=== PATIENT | male | born 1955 | race Caucasian/White ===

== ENCOUNTER 2019-12-17 18:28 | Inpatient (IN) | payer OTHER, MEDICAID ==
[~2019-12-17] VITALS: Ht 172.7 cm; Wt 86.6 kg
[2019-12-17] MEDS ORDERED: NACL 0.9% 500 ML IV SCH (18:33)
[2019-12-17 18:34] VITALS: BP 117/78
--- NOTE | 2019-12-17 18:45 | NUR ---
63/M BIBA FROM [facility] FOR FEVER AND COUGH X1 DAY. CAREGIVER REPORTS THAT PT HAS URINARY FREQUENCY. DENIES THAT PT HAS ANY N/V/D, CONSTIPATION. PT AWAKE, GCS 10 ([id number]), SPO2 94% ON RA, RR 20 EVEN AND UNLABORED. LUNG SOUNDS CLEAR BL. S1S2. BS ACTIVE X4, ABD SOFT ROUND LARGE NONTENDER, LAYNE GTUBE NOTED. BL FOOT PITTING EDEMA +1 NOTED, WITH CONTRACTURES. L ARM STRONGER THAN R ARM, AT BASELINE. HX INTELLECTUAL DISABILITY, PARAPLEGIA, SPASTIC LOWER EXTREMITY, BPH, SEIZURE, GLAUCOMA, GERD, GALLSTONES, BL FEET EDEMA
[2019-12-17 19:14] LABS: BASOPHILS % (AUTO) 0.3 % (0.0-2.0); HEMOGLOBIN 14.1 g/dL (12.0-18.0); LYMPHOCYTES # (AUTO) 1.5 K/uL (2.0-11.5); LYMPHOCYTES % (AUTO) 15.4 % (20.5-51.1); MEAN CORPUSCULAR HEMOGLOBIN 32 pg (27-31); MEAN CORPUSCULAR HGB CONC 34 g/dL (33-37); MEAN CORPUSCULAR VOLUME 96.2 fL (80-94); MONOCYTES # (AUTO) 1.4 K/uL (0.8-1.0); MONOCYTES % (AUTO) 14.6 % (1.7-9.3); NEUTROPHILS # (AUTO) 6.9 K/uL (1.8-7.7); NEUTROPHILS % (AUTO) 69.7 % (42.2-75.2); PLATELET COUNT (AUTO) 160 K/uL (140-450); RED BLOOD CELL COUNT(AUTO) 4.36 MIL/uL (4.20-6.10); RED CELL DISTRIBUTION WIDTH 13.7 % (11.6-13.7); WHITE BLOOD COUNT (AUTO) 9.9 K/uL (4.8-10.8)
[2019-12-17 19:32] LABS: PROTHROMBIN TIME 10.2 secs (10.8-13.4)
[2019-12-17 19:38] LABS: ALBUMIN 3.2 g/dL (3.4-5.0); CREATININE 0.6 mg/dL (0.6-1.3); POTASSIUM 3.6 mmol/L (3.5-5.1); TOTAL BILIRUBIN 0.2 mg/dL (0.0-1.0)
[2019-12-17 19:44] LABS: APPEARANCE,URINE CLEAR (CLEAR); BILIRUBIN,URINE NEGATIVE (NEGATIVE); BLOOD, URINE 3+ (NEGATIVE); COLOR,URINE YELLOW (YELLOW); LEUKOCYTE ESTERASE ,URINE NEGATIVE (NEGATIVE); NITRITE, URINE POSITIVE (NEGATIVE); UGLUCOSE NEGATIVE (NEGATIVE)
[2019-12-17] MEDS ORDERED: LEVOFLOXACIN 750 MG/D5W PREMIX 150 ML IV ONE (20:05)
[2019-12-17] MEDS ORDERED: OSELTAMIVIR PHOSPHATE 75 MG CAP PO ONE (20:05)
[2019-12-17 20:08] LABS: ANION GAP 12.1 (8-16); CARBON DIOXIDE 28.5 mmol/L (21-32)
--- NOTE | 2019-12-17 20:10 | NUR ---
CRITICAL LAB RESULT: LACTIC 2.2. REPORTED TO JULIANO LENZ
[2019-12-17] MEDS ORDERED: NACL 0.9% 2,000 ML IV ONE (20:15)
[2019-12-17] MEDS ORDERED: HYDROcodone/APAP 10/325 MG 1 TAB TAB PO PRN (20:25)
[2019-12-17] MEDS ORDERED: ONDANSETRON 4 MG/2 ML VIAL IM/IVP PRN (20:25)
[2019-12-17] MEDS ORDERED: DOCUSATE SODIUM 100 MG GELCAP PO PRN (20:25)
[2019-12-17 20:48] LABS: RBC,URINE 11-20 (MOD) /HPF (0-5); WBC,URINE 0-5 /HPF (0-5)
[2019-12-17] MEDS ORDERED: ALBUTEROL SULFATE/IPRATROPIU 3 ML SOL IH PRN (20:55)
[2019-12-17 20:58] LABS: BARBITURATE, URINE POS. ng/ml (NEG <=200); BENZODIAZEPINE, URINE NEG. ng/mL (NEG <=200); CANNABINOID, URINE NEG. ng/mL (NEG <=50); COCAINE, URINE NEG. ng/mL (NEG <=300); OPIATE, URINE NEG. ng/mL (NEG <=2000); PHENCYCLIDINE SCREEN,URINE NEG. ng/mL (NEG <=25)
[2019-12-17] MEDS ORDERED: FISH100053 GT (20:58)
[2019-12-17] MEDS ORDERED: MULT9LIQ2 GT (20:58)
[2019-12-17] MEDS ORDERED: XALOS BOTH EYES (20:58)
[2019-12-17] MEDS ORDERED: OSC500 PO (20:58)
[2019-12-17] MEDS ORDERED: ASCO500T45 GT (20:58)
[2019-12-17] MEDS ORDERED: MEDI30SO GT (20:58)
[2019-12-17] MEDS ORDERED: MIRABULK GT (20:58)
[2019-12-17] MEDS ORDERED: PHEN100C3 PO (20:58)
[2019-12-17] MEDS ORDERED: LACT1CAP63 PO (20:58)
[2019-12-17] MEDS ORDERED: BACL5TAB GT ×2 (20:58→21:41)
[2019-12-17] MEDS ORDERED: DEXT15DR9 BOTH EYES (20:58)
[2019-12-17] MEDS ORDERED: WHEA1POW16 GT (20:58)
[2019-12-17] MEDS ORDERED: TAMS0.4C96 GT (20:58)
[2019-12-17] MEDS ORDERED: KEP500L GT (20:58)
[2019-12-17] MEDS ORDERED: PHEN-1438 GT ×2 (20:58)
[2019-12-17] MEDS ORDERED: VIT D GT (20:58)
[2019-12-17] MEDS ORDERED: PHEN20EL30 GT (20:58)
[2019-12-17] MEDS ORDERED: CARB15DR5 BOTH EARS (20:58)
[2019-12-17] MEDS ORDERED: HYPROMELLOSE BOTH EYES SCH (21:00)
[2019-12-17] MEDS ORDERED: OSELTAMIVIR PHOSPHATE 75 MG CAP PO SCH (21:00)
[2019-12-17] MEDS ORDERED: [UNRECOGNIZED DRUG - OTHER] BOTH EYES SCH (21:00)
[2019-12-17] MEDS ORDERED: GLYCERIN BOTH EYES SCH (21:00)
[2019-12-17] MEDS ORDERED: BACLOFEN 5 MG GT SCH (21:00)
[2019-12-17] MEDS ORDERED: DEXTRAN BOTH EYES SCH (21:00)
[2019-12-17 21:04] VITALS: BP 151/89
--- NOTE | 2019-12-17 21:04 | NUR ---
PT ARRIVED AT UNIT VIA GURNEY, RECEIVED BEDSIDE REPORT FROM COLLECTION TEAM LEAD NELDA AND RAHUL, PT STABLE, NO DISTRESS NOTED, IV TO L AC 20G PATENT INTACT, INFUSING LEVAQUIN AT THIS MOMENT, PT ON 2LPM O2 VIA NC, NO SOB NOTED, CAREGIVER AT BEDSIDE, G TUBE IN PLACE, PT IS APHASIC BASELINE, UNABLE TO LET NEEDS KNOWN, FLACC 0, BLE CONTRACTED, UNABLE TO AMBULATE. INITIAL ASSESSMENT DONE, ALL SAFETY PRECAUTION MET, CALL LIGHT WITHIN REACH, CAREGIVER AT BEDSIDE, MRSA SWAB TAKEN, WILL CONTINUE TO MONITOR.
[2019-12-17 21:14] LABS: AMYLASE 28 U/L (25-115); LACTATE DEHYDROGENASE 258 U/L (85-227); LIPASE 108 U/L (73-393); MAGNESIUM 1.9 mg/dL (1.8-2.4); PHOSPHORUS 2.9 mg/dL (2.5-4.9); THYROID STIMULATING HORMONE 1.02 uIU/mL (0.34-3.74)
--- NOTE | 2019-12-17 21:14 | NUR ---
Patient will be admitted to care of [facility]. Admited to MED SURG. Will go to room 115. Belongings list completed. Report to CRISTINA VÁZQUEZ.
[2019-12-17] MEDS: NACL 0.9% 1,000 ML IV SCH (22:47)
[2019-12-17] MEDS ORDERED: CRUSHER, PILL MC ONE (22:53)
[2019-12-17] MEDS ORDERED: PHENYTOIN 100 MG CAPER PO SCH (23:00)
[2019-12-17] MEDS ORDERED: levETIRAcetam 100 MG/ML ORASYR GT SCH (23:00)
[2019-12-17] MEDS ORDERED: TAMSULOSIN 0.4 MG CAP GT SCH (23:00)
[2019-12-17] MEDS ORDERED: CLINDAMYCIN 600 MG/4 ML VIAL ONE (23:02)
[2019-12-17] MEDS: CLINDAMYCIN 600 MG in DEXTROSE 5% 50 ML IV SCH (23:07)
[2019-12-17] MEDS: ACETAMINOPHEN 325 MG TAB PO PRN (23:22)
--- NOTE | 2019-12-17 23:22 | NUR ---
CHECKED PT V/S PT HAS TEMP 102.7, TYLENOL GIVEN PER DR ORDER ADMINISTERED, PT TOLERATED WELL, NO DISTRESS NOTED, WILL CONTINUE TO MONITOR.
[2019-12-18] VITALS: BP 149/95
--- NOTE | 2019-12-18 00:30 | NUR ---
RECHECKED PT TEMPERATURE 100.2, COOLING MEASURES ADMINISTERED, PT TOLERATED WELL, NO DISTRESS NOTED, CALL LIGHT WITHIN REACH, WILL CONTINUE TO MONITOR.
[2019-12-18] MEDS: LORazepam 1 MG TAB GT PRN (01:15)
--- NOTE | 2019-12-18 01:15 | NUR ---
PT SCREAMING, AND TRYING TO PULL IV, ORDERED MITTEN AND ATIVAN, ATIVAN ADMINISTERED, PT TOLERATED WELL, NO DISTRESS NOTED, E MERCHANT AT BEDSIDE, WILL CONTINUE TO MONITOR.
[2019-12-18] MEDS: LORazepam 2 MG/ML VIAL IVP PRN (02:17)
--- NOTE | 2019-12-18 02:17 | NUR ---
PT HAD A SEIZURE REPORTED BY CAREGIVER, SEIZURE LASTED 45SECONDS, ATIVAN PER ORDER ADMINISTERED, PT TOLERATED WELL, NOTIFIED DR. OLIVAS, STATED UNDERSTANDING, TO PUT PT ON TELE MONITORING. PT SLEEPING, PHYSICIAN OFFICE NURSE AT BEDSIDE WILL CONTINUE TO MONITOR.
[2019-12-18 04:00] VITALS: BP 123/67
--- NOTE | 2019-12-18 04:11 | NUR ---
PT SLEEPING, NO DISTRESS NOTED, V/S TAKEN, CALL LIGHT WITHIN REACH, WILL CONTINUE TO MONITOR.
[2019-12-18] MEDS ORDERED: CLINDAMYCIN 600 MG/4 ML VIAL ONE (06:05)
[2019-12-18] MEDS: CLINDAMYCIN 600 MG in DEXTROSE 5% 50 ML IV SCH ×3 (06:17→18:10)
--- NOTE | 2019-12-18 07:21 | NUR ---
ENDORSED PT TO DAY SHIFT NURSE ISRAEL RN, PT STABLE, NO DISTRESS NOTED, CAREGIVER AT BEDSIDE.
--- NOTE | 2019-12-18 07:23 | NUR ---
RECEIVED BEDSIDE REPORT FROM METERMAN NURSE FOR CONTINUITY OF CARE. PT IS ASLEEP ON BED AND SNORING. RESPIRATION EVEN AND UNLABORED ON 2LPM VIA NC. FLACC 0. NO SIGNS OF DISTRESS NOTED. SCHOOL BOAT DRIVER BY BEDSIDE. IV ON LAC 20G, CLEAN AND INTACT, SUPPORTED BY ARM BAND, INFUSING PER MD ORDER. BILATERAL HEELS REDNESS NOTED, PROTECTED WITH HEEL PROTECTORS, G-TUBE IN PLACE, OTHERWISE, SKIN CLEAN AND DRY. MITTENS IN PLACE, NO SIGNS OF INJURY AND REDNESS. PT IS INCONTINENT AND BEDREST. TELE MONITOR ATTACHED. SAFETY MEASURES IN PLACE. SEIZURE AND ASPIRATION PRECAUTION IN PLACE. BED IN LOW POSITION AND CALL LIGHT WITHIN REACH. FALL RISK PROTOCOL IN PLACE AND BED ALARM ACTIVATED.
[2019-12-18 07:37] LABS: CREATININE 0.6 mg/dL (0.6-1.3); POTASSIUM 3.6 mmol/L (3.5-5.1)
[2019-12-18 07:38] LABS: ANION GAP 11.1 (8-16); BASOPHILS % (AUTO) 0.3 % (0.0-2.0); CARBON DIOXIDE 28.5 mmol/L (21-32); EOSINOPHILS % (AUTO) 0.3 % (0.0-4.0); HEMATOCRIT 39.5 % (36-52); HEMOGLOBIN 13.5 g/dL (12.0-18.0); LYMPHOCYTES # (AUTO) 2.6 K/uL (2.0-11.5); LYMPHOCYTES % (AUTO) 31.8 % (20.5-51.1); MEAN CORPUSCULAR HEMOGLOBIN 33 pg (27-31); MEAN CORPUSCULAR HGB CONC 34 g/dL (33-37); MEAN CORPUSCULAR VOLUME 96.3 fL (80-94); MONOCYTES # (AUTO) 1.6 K/uL (0.8-1.0); MONOCYTES % (AUTO) 19.4 % (1.7-9.3); NEUTROPHILS # (AUTO) 3.9 K/uL (1.8-7.7); NEUTROPHILS % (AUTO) 48.2 % (42.2-75.2); PLATELET COUNT (AUTO) 139 K/uL (140-450); RED CELL DISTRIBUTION WIDTH 13.5 % (11.6-13.7); WHITE BLOOD COUNT (AUTO) 8.1 K/uL (4.8-10.8)
[2019-12-18 07:39] LABS: MAGNESIUM 1.7 mg/dL (1.8-2.4); PHOSPHORUS 3.3 mg/dL (2.5-4.9)
[2019-12-18 07:48] LABS: CHOL/HDL RATIO 2.5 (1-4.5)
[2019-12-18 08:00] VITALS: BP 130/77
[2019-12-18] MEDS: ALBUTEROL SULFATE/IPRATROPIU 3 ML SOL IH SCH ×3 (08:12→19:45)
--- NOTE | 2019-12-18 08:58 | NUR ---
PATIENT HAS BEEN SCREENED AND CATEGORIZED HIGH NUTRITION RISK. PATIENT WILL BE SEEN WITHIN 1-2 DAYS OF ADMISSION. 12/18/19-12/19/[address]
[2019-12-18] MEDS ORDERED: POLYVINYL ALCOHOL 1.4% OP 15 ML SOL BOTH EYES SCH (09:00)
[2019-12-18] MEDS: LEVOFLOXACIN 750 MG/D5W PREMIX 150 ML IV SCH (09:30)
[2019-12-18] MEDS: NACL 0.9% 1,000 ML IV SCH ×2 (09:31→17:26)
[2019-12-18] MEDS: levETIRAcetam 100 MG/ML ORASYR GT SCH ×2 (09:31→21:26)
[2019-12-18] MEDS: OSELTAMIVIR PHOSPHATE 75 MG CAP PO SCH ×2 (09:32→21:21)
[2019-12-18] MEDS: LACTOBACILLUS RHAMNOSUS GG 1 EACH CAP PO SCH (09:32)
[2019-12-18] MEDS: POLYETHYLENE GLYCOL 17 GM/PKT GT SCH (09:32)
[2019-12-18] MEDS: PHENobarbital 30 MG TAB GT SCH (09:33)
[2019-12-18] MEDS: [UNRECOGNIZED DRUG - OTHER] OP SCH ×2 (09:33→22:53)
[2019-12-18] MEDS: DEXTRAN 70 OP SCH ×2 (09:33→22:53)
[2019-12-18] MEDS: PHENYTOIN 100 MG CAPER PO SCH ×2 (09:34→13:03)
[2019-12-18] MEDS: PANTOPRAZOLE 40 MG TABEC PO SCH (09:34)
[2019-12-18] MEDS: BACLOFEN 10 MG TAB GT SCH ×2 (09:34→21:24)
--- NOTE | 2019-12-18 09:38 | NUR ---
CASH TELLER IS CHANGING AND CLEANING PT WITH FOUNTAIN SERVER. ADMINISTERED SCHEDULED MEDS PER MD ORDER VIA G-TUBE, MEDS EDUCATION PROVIDED TO PATIENT AND FOUNTAIN SERVER AT BEDSIDE. PT TOLERATED G-TUBE MEDS WELL. RESPIRATION EVEN AND UNLABORED ON RA. FLACC 0. NO SIGNS OF DISTRESS NOTED. TELE MONITOR ATTACHED. ASPIRATION AND SEIZURE PRECAUTION IN PLACE. BED IN LOW POSITION AND CALL LIGHT WITHIN REACH. BED ALARM ACTIVATED.
--- NOTE | 2019-12-18 11:16 | NUR ---
PT IS RESTING ON BED AND EYES OPEN TO TOUCH. RESPIRATION EVEN AND UNLABORED ON RA. FLACC 0. NO SIGNS OF DISTRESS NOTED. TELE MONITOR ATTACHED. MUSIC VIDEO DIRECTOR MICHAEL BY BEDSIDE. SAFETY MEASURES IN PLACE. BED ALARM ACTIVATED.
[2019-12-18 12:00] VITALS: BP 134/57
--- NOTE | 2019-12-18 12:20 | NUR ---
ADMINISTERED CLINDAMYCIN VIA IVPB PER MD ORDER, MED ED PROVIDED TO PT AND CONCRETE SCULPTOR MICHAEL BY BEDSIDE. MICHAEL IS ASSISTING PT TO EAT LUNCH AT THIS TIME. NO SIGNS OF DISTRESS NOTED. TELE MONITOR ATTACHED. SAFETY MEASURES IN PLACE.
[2019-12-18] MEDS ORDERED: MAG SULF 2000 MG/WATER PREMIX 50 ML IV SCH (13:00)
--- NOTE | 2019-12-18 13:06 | NUR ---
CLEANSED G-TUBE SITE WITH NS AND PAD DRY. CHANGED DRESSING ON G-TUBE SITE, PT TOLERATED WELL. WRAPPED AROUND WITH ABD BAND TO PREVENT PT FROM PULLING OUT G-TUBE. ADMINISTERED MED PHENYTOIN VIA G-TUBE, PT TOLERATED WELL. ADMINISTERED MAG SULFATE FOR LOW AM MAG 1.7 VIA IV, MEDS EDUCATION PROVIDED TO PT AND BACK SHOE CUTTER MICHAEL AT BEDSIDE. PT IS RESTING ON BED. FLACC 0. RESPIRATION EVEN AND UNLABORED ON RA. NO SIGNS OF DISTRESS NOTED. TELE MONITOR ATTACHED. SAFETY MEASURES IN PLACE. BED IN LOW POSITION AND CALL LIGHT WITHIN REACH.
--- NOTE | 2019-12-18 13:52 | NUR ---
12/18/19 RD INITIAL ASSESSMENT COMPLETED PLEASE REFER TO NUTRITION ASSESSMENT UNDER CARE ACTIVITY FOR ESTIMATED NUTRITIONAL NEEDS. 1. CONTINUE MECHANICAL SOFT DIET W/NECTAR THICK LIQUIDS TOLERATED 2. PROVIDE FEEDING ASSISTANCE TO PATIENT WITH MEALS 3. RD TO FOLLOW-UP 3-5 DAYS, MODERATE RISK PATTI CABRERA RD
--- NOTE | 2019-12-18 15:22 | NUR ---
PT AWAKE, MOVING HIS HANDS AND RESTING ON BED. RESPIRATION EVEN AND UNLABORED ON RA. FLACC 0. PARTS CLERK PLANT MAINTENANCE ETTA QUILES AT BEDSIDE. NO SIGNS OF DISTRESS NOTED. TELE MONITOR ATTACHED. SAFETY MEASURES IN PLACE.
--- NOTE | 2019-12-18 15:29 | NUR ---
DC PLANN[age] YR OLD MALE PT WAS ADMITTED FROM [facility] WITH A DX OF UTI, ALOC, INFLUENZA. PT HAS A HX OF INTELLECTUAL DISABILITY SEIZURE DISORDER PARAPLEGIA BPH AND GERD. PT BASE LINE IS NON-VERBAL. STARTED IVF, TAMIFLU , LEVAQUIN AND CLEOCIN IV .BLOOD URINE AND SPUTUM CULTURE PENDING, REPEAT CXR . CONSULTED WITH ID DR MARAVILLA . DC PLAN TO GO BACK TO THE [facility] WHEN STABLE. Addendum: 12/21/19 at 1051 by Barbara Boss CM DC PLANNING: SPOKE WITH MILAGROS VÁZQUEZ FLOATER OPERATOR AT [facility] ,STATED THEY HAVE RN IN THE UNIT CAN ADMINISTER THE IV THE ONLY THING THEY NEED THE IV MEDICATION AND IV PUMP , IF WE SET UP THAT THEY CAN ADMINISTER THE MEDS. CALLED [facility] [phone] SPOKE WITH MANUAL DIRECTOR FAXED THE REQUEST TO [phone] WILL REVIEW THE ORDER AND WILL CALL BACK TO FOLLOW. Addendum: 12/21/19 at 1431 by Barbara Boss CM DC PLANNING RECEIVED A CALL FROM MILAGROS VÁZQUEZ FROM [facility] REQUESTING IF CLINDAMYCIN CAN BE CHANGED TO PO. CHECKED WITH DR MIKE AND YASMINE TO CHANGE CLINDAMYCIN TO PO . CALLED CHERELLE AT [facility] AND FAXED THE NEW ORDER. PAKO TO FOLLOW Addendum: 12/21/19 at 1646 by Tracie Montalvo CM BLS transportation arranged with [facility] , pick-up time is 1800. Medical necessity form faxed to bill pt's insurance. TANA Zamora/PAKO Ext [phone] Addendum: 12/21/19 at 1651 by Barbara Boss CM DC PLANNING PER MILAGROS LEWIS CLINDAMYCIN PO ORDERED TO [facility] AT [phone]
[2019-12-18 16:00] VITALS: BP 121/47
[2019-12-18] MEDS: PHENYTOIN 100 MG/4 ML UDC GT SCH (17:26)
--- NOTE | 2019-12-18 17:27 | NUR ---
ADMINISTERED MED PER MD ORDER ORDER VIA G-TUBE, MED EDUCATION PROVIDED TO PT AND STEP FINISHER ETTA ETTA AT BEDSIDE. PT AWAKE AND PLAYING WITH THE MITTENS. RESPIRATION EVEN AND UNLABORED ON RA. FLACC 0. NO SIGNS OF DISTRESS NOTED. TELE MONITOR ATTACHED. SAFETY MEASURES IN PLACE. BED IN LOW POSITION AND CALL LIGHT WITHIN REACH.
--- NOTE | 2019-12-18 17:47 | NUR ---
WITH ASSIST FROM LEARNING AND DEVELOPMENT ASSISTANT ETTA, AALIYAH IS CLEANING AND REPOSITION PT. PT TOLERATED WELL. NO SIGNS OF DISTRESS NOTED. TELE MONITOR ATTACHED. SAFETY MEASURES IN PLACE. BED IN LOW POSITION AND CALL LIGHT WITHIN REACH. DEMONSTRATED TO LEATHER PATCHER ETTA ON HOW TO USE THE TELEPHONE TO CALL RN EXTENSION AND FEED AND FARM MANAGEMENT ADVISER EXTENSION, ETTA WAS ABLE TO RETURN DEMONSTRATION.
--- NOTE | 2019-12-18 18:10 | NUR ---
ADMINISTERED CLINDAMYCIN VIA IVPB PER MD ORDER, MED ED PROVIDED TO PT AND INVESTIGATIVE AGENT ETTA BY BEDSIDE. ETTA IS ASSISTING PT TO EAT DINNER AT THIS TIME. NO SIGNS OF DISTRESS NOTED. TELE MONITOR ATTACHED. SAFETY MEASURES IN PLACE.
--- NOTE | 2019-12-18 19:17 | NUR ---
ENDORSED PT AT BEDSIDE TO ONLINE ADVERTISING ANALYST NURSE FOR CONTINUITY OF CARE. PT IS RESTING ON BED AT THIS TIME. RESPIRATION EVEN AND UNLABORED ON RA. FLACC 0. NO SIGNS OF DISTRESS NOTED. PT IS IN STABLE CONDITION. TELE MONITOR ATTACHED. SALES REPRESENTATIVE WIRE ROPE ETTA AT BEDSIDE. SAFETY MEASURES IN PLACE.
--- NOTE | 2019-12-18 19:18 | NUR ---
RECEIVED BEDSIDE SHIFT REPORT FROM AM SHIFT NURSE ISRAEL. PATIENT IS LYING IN BED ON HIGH FOWLERS, RESTING WITH EYES CLOSED. ON ROOM AIR, TOLERATING WELL. CAREGIVER IS AT BEDSIDE. IV ACCESS ON LEFT AC 20 GAUGE, PATENT, INTACT AND INFUSING WELL. G-TUBE IN PLACE. BED IN LOW, SAFETY PRECAUTIONS IN PLACE. SKIN INTACT. ON SEIZURE PRECAUTION. ON DROPLET PRECAUTION. BOARD UPDATED. MITTENS IN PLACE. CALL LIGHT PLACED WITHIN PATIENT/CAREGIVER REACH. WILL CONTINUE TO MONITOR PATIENT.
--- NOTE | 2019-12-18 21:15 | NUR ---
PATIENT HAS ORAL TEMPERATURE OF 100.8. COOLING MEASURES RENDERED AND PRN ACETAMINOPHEN GIVEN. DELIVERY TRUCK DRIVER HEAVY AT BEDSIDE. WILL CONTINUE TO MONITOR PATIENT.
[2019-12-18] MEDS: ACETAMINOPHEN 325 MG TAB PO PRN (21:20)
[2019-12-18] MEDS: TAMSULOSIN 0.4 MG CAP GT SCH (21:26)
[2019-12-18] MEDS: LATANOPROST 0.005% OP 2.5 ML BTL BOTH EYES SCH (22:53)
[2019-12-19] MEDS: CLINDAMYCIN 600 MG in DEXTROSE 5% 50 ML IV SCH ×4 (00:33→17:53)
[2019-12-19 01:57] VITALS: BP_SYST 116; BP_SYST 98; BP_DIAS 41; BP_DIAS 63
--- NOTE | 2019-12-19 02:02 | NUR ---
PATIENT IN STABLE CONDITION. ENDORSED TO GURPREET T[place]NSEND FOR CONTINUITY OF CARE.
--- NOTE | 2019-12-19 02:03 | NUR ---
RECEIVED PT FROM [facility] FOR CONTINUOUS CARE. CAREGIVER AT BEDSIDE. PT IN STABLE CONDITION.
[2019-12-19] MEDS: NACL 0.9% 1,000 ML IV SCH ×3 (03:24→22:24)
[2019-12-19 04:00] VITALS: BP 137/76
[2019-12-19] MEDS ORDERED: CLINDAMYCIN 600 MG/4 ML VIAL ONE (05:03)
--- NOTE | 2019-12-19 05:08 | NUR ---
GIVEN CLEOCIN MD ORDERED. PT TOLERATED WELL.
--- NOTE | 2019-12-19 06:42 | NUR ---
PT SLEEPING IN BED COMFORTABLY. NO ACUTE DISTRESS NOTED. WILL ENDORSE PT TO DAY SHIFT NURSE FOR CONTINUOUS CARE.
[2019-12-19 07:07] LABS: BASOPHILS % (AUTO) 0.3 % (0.0-2.0); EOSINOPHILS % (AUTO) 0.2 % (0.0-4.0); HEMOGLOBIN 12.5 g/dL (12.0-18.0); LYMPHOCYTES # (AUTO) 2.2 K/uL (2.0-11.5); LYMPHOCYTES % (AUTO) 35.2 % (20.5-51.1); MEAN CORPUSCULAR HEMOGLOBIN 33 pg (27-31); MEAN CORPUSCULAR HGB CONC 35 g/dL (33-37); MEAN CORPUSCULAR VOLUME 95.4 fL (80-94); MONOCYTES % (AUTO) 16.1 % (1.7-9.3); NEUTROPHILS % (AUTO) 48.2 % (42.2-75.2); PLATELET COUNT (AUTO) 127 K/uL (140-450); RED BLOOD CELL COUNT(AUTO) 3.77 MIL/uL (4.20-6.10); RED CELL DISTRIBUTION WIDTH 13.7 % (11.6-13.7); WHITE BLOOD COUNT (AUTO) 6.2 K/uL (4.8-10.8)
[2019-12-19] MEDS: ALBUTEROL SULFATE/IPRATROPIU 3 ML SOL IH SCH ×3 (07:23→20:43)
[2019-12-19 07:28] LABS: ANION GAP 9.2 (8-16); CARBON DIOXIDE 29.3 mmol/L (21-32); CREATININE 0.6 mg/dL (0.6-1.3); POTASSIUM 3.5 mmol/L (3.5-5.1)
--- NOTE | 2019-12-19 07:43 | NUR ---
RECEIVED BEDSIDE SHIFT REPORT FROM DETAIL SERGEANT RN FOR CONTINUITY OF CARE. PATIENT IS LYING IN BED RESTING WITH EYES OPEN. ON RA, TOLERATING WELL. CAREGIVER IS AT BEDSIDE. IV ACCESS ON LEFT AC 20 GAUGE, PATENT, INTACT AND INFUSING WELL. G-TUBE IN PLACE FOR MEDICATION ADMINISTRATION. BED IN LOW POSITION, SAFETY PRECAUTIONS IN PLACE. SKIN INTACT. ON SEIZURE PRECAUTIONS. ON DROPLET PRECAUTIONS FOR POSITIVE INFLUENZA. BOARD UPDATED. DISCUSSED POC WITH PT CAREGIVER AND CAREGIVER VERBALIZED UNDERSTANDING. MITTENS IN PLACE DUE TO PT PULLING AT IV LINE AND HITTING SELF IN THE HEAD. CALL LIGHT WITHIN REACH OF PT CAREGIVER. WILL MONITOR PATIENT CLOSELY.
[2019-12-19 07:52] LABS: MAGNESIUM 2.1 mg/dL (1.8-2.4); PHOSPHORUS 3.3 mg/dL (2.5-4.9)
[2019-12-19 08:00] VITALS: BP 120/61
--- NOTE | 2019-12-19 09:46 | NUR ---
ADMINISTERED PT MORNING MEDS. PT TOLERATED WELL. ALL OTHER NEEDS MET. WILL CONTINUE TO ROUND FREQUENTLY ON PT. BED IN LOW POSITION, CALL LIGHT WITHIN REACH. CAREGIVER AT BEDSIDE.
[2019-12-19] MEDS: POLYETHYLENE GLYCOL 17 GM/PKT GT SCH (09:49)
[2019-12-19] MEDS: levETIRAcetam 100 MG/ML ORASYR GT SCH ×2 (09:50→21:36)
[2019-12-19] MEDS: LEVOFLOXACIN 750 MG/D5W PREMIX 150 ML IV SCH (09:50)
[2019-12-19] MEDS: PHENYTOIN 100 MG/4 ML UDC GT SCH ×3 (09:50→17:53)
[2019-12-19] MEDS: PANTOPRAZOLE 40 MG TABEC PO SCH (09:52)
[2019-12-19] MEDS: ACETAMINOPHEN 325 MG TAB PO PRN (09:52)
[2019-12-19] MEDS: OSELTAMIVIR PHOSPHATE 75 MG CAP PO SCH ×2 (09:52→21:37)
[2019-12-19] MEDS: LACTOBACILLUS RHAMNOSUS GG 1 EACH CAP PO SCH (09:52)
[2019-12-19] MEDS: BACLOFEN 10 MG TAB GT SCH ×2 (09:53→21:38)
[2019-12-19] MEDS: PHENobarbital 30 MG TAB GT SCH (09:53)
[2019-12-19] MEDS: [UNRECOGNIZED DRUG - OTHER] OP SCH ×2 (09:55→21:37)
[2019-12-19] MEDS: DEXTRAN 70 OP SCH ×2 (09:55→21:37)
[2019-12-19 12:00] VITALS: BP 88/43
--- NOTE | 2019-12-19 12:03 | NUR ---
PT BP READING 88/43 (MAP 58) AFTER MULTIPLE ATTEMPTS. NOTIFIED. PER , REASSESS PT IN 1HR. NO INTERVENTIONS AT THIS TIME. Addendum: 12/19/19 at 1206 by Josie Flores RN PT ASYMPTOMATIC AT THIS TIME. PT AROUSABLE AND AWAKE WITH CAREGIVER AT BEDSIDE. WILL CONTINUE TO ROUND ON PT.
--- NOTE | 2019-12-19 13:57 | NUR ---
PT ASLEEP. CAREGIVER AT BEDSIDE. ALL NEEDS MET. WILL CONTINUE TO ROUND FREQUENTLY ON PT.
--- NOTE | 2019-12-19 15:58 | NUR ---
PT ASLEEP. CAREGIVER FROM HOME AT BEDSIDE. ALL NEEDS MET. WILL CONTINUE TO ROUND ON PT.
[2019-12-19 16:00] VITALS: BP 102/68
--- NOTE | 2019-12-19 17:49 | NUR ---
PT RESTING IN BED. ALL NEEDS MET.
--- NOTE | 2019-12-19 19:30 | NUR ---
RECEIVED REPORT FROM DAY SHIFT NURSE. PT LYING IN BED, AWAKE AND ALERT, NON VERBAL. NO S/S OF PAIN OR SOB. ON ROOM AIR. IV TO RIGHT THUMB #23G, PATENT AND INTACT. PT HAS G-TUBE, DRESSING CLEAN, DRY AND INTACT. PT IS ON DROPLET PRECAUTION. PT HAS MITTENS TO BOTH HANDS D/T PULLING LINES AND HITTING HIS HEAD. CAREGIVER IN THE ROOM. FALL AND SEIZURE PRECAUTIONS IN PLACE. CALL LIGHT WITHIN REACH.
[2019-12-19 20:00] VITALS: BP 102/68
--- NOTE | 2019-12-19 20:09 | NUR ---
ENDORSED PT TO CONSTRUCTION CHECKER FOR CONTINUITY OF CARE. PT IN STABLE CONDITION AT THIS TIME.
[2019-12-19] MEDS: LATANOPROST 0.005% OP 2.5 ML BTL BOTH EYES SCH (21:36)
[2019-12-19] MEDS: TAMSULOSIN 0.4 MG CAP GT SCH (21:38)
--- NOTE | 2019-12-19 21:40 | NUR ---
DUE MEDS GIVEN. PT TOLERATED WELL. NO S/S OF RESP DISTRESS. NO S/S OF PAIN OR DISCOMFORT.
[2019-12-20] VITALS: BP 109/74
[2019-12-20] MEDS: CLINDAMYCIN 600 MG in DEXTROSE 5% 50 ML IV SCH ×4 (00:06→17:41)
--- NOTE | 2019-12-20 00:34 | NUR ---
PT AWAKE. RESP EVENA ND UNLABORED. PT KEPT CLEAN, DRY AND COMFORTABLE.
--- NOTE | 2019-12-20 02:10 | NUR ---
SUSIE CARE DONE.PT REPOSITIONED Q2H. PT KEPT COMFORTABLE.
[2019-12-20 04:00] VITALS: BP 106/69
--- NOTE | 2019-12-20 04:15 | NUR ---
UNABLE TO COLLECT SPUTUM FROM PT SINCE LAST NIGHT. V/S TAKEN. O2 90% ON ROOM AIR. PUT PT ON O2 AT 2L/MIN VIA NC, O2 SAT 93%.
--- NOTE | 2019-12-20 06:00 | NUR ---
PT SLEEPING. NO S/S OF RESP DISTRESS NOTED. NO S/S OF PAIN. IV ANTIBIOTIC GIVEN.
[2019-12-20] MEDS: NACL 0.9% 1,000 ML IV SCH ×2 (06:03→18:24)
[2019-12-20] MEDS: ALBUTEROL SULFATE/IPRATROPIU 3 ML SOL IH SCH ×3 (06:45→20:31)
[2019-12-20 07:02] LABS: HEMATOCRIT 34.6 % (36-52); HEMOGLOBIN 11.8 g/dL (12.0-18.0); MEAN CORPUSCULAR HEMOGLOBIN 33 pg (27-31); MEAN CORPUSCULAR HGB CONC 34 g/dL (33-37); MEAN CORPUSCULAR VOLUME 95.3 fL (80-94); PLATELET COUNT (AUTO) 103 K/uL (140-450); RED BLOOD CELL COUNT(AUTO) 3.63 MIL/uL (4.20-6.10); RED CELL DISTRIBUTION WIDTH 13.3 % (11.6-13.7); WHITE BLOOD COUNT (AUTO) 5.6 K/uL (4.8-10.8)
--- NOTE | 2019-12-20 07:15 | NUR ---
ENDORSED PT TO DAY SHIFT NURSE. PT IN STABLE CONDITION.
[2019-12-20 07:19] LABS: ANION GAP 11.6 (8-16); CARBON DIOXIDE 26.8 mmol/L (21-32); CREATININE 0.5 mg/dL (0.6-1.3); POTASSIUM 3.4 mmol/L (3.5-5.1)
[2019-12-20 07:36] LABS: MAGNESIUM 1.8 mg/dL (1.8-2.4); PHOSPHORUS 2.7 mg/dL (2.5-4.9)
--- NOTE | 2019-12-20 07:41 | NUR ---
RECEIVED PT FROM PHARMACY OPERATIONS MANAGER FOR CONTINUITY OF CARE FROM YESTERDAY. PT IN STABLE CONDITION. ALL NEED MET. WILL ROUND FREQUENTLY ON PT.
[2019-12-20 07:52] LABS: BASOPHILS % (MANUAL) 0 % (0-2); EOSINOPHILS % (MANUAL) 0 % (0-4); LYMPHOCYTES % (MANUAL) 45 % (20-46); MONOCYTES % (MANUAL) 10 % (5-12)
[2019-12-20 08:00] VITALS: BP 104/63
[2019-12-20] MEDS: [UNRECOGNIZED DRUG - OTHER] OP SCH ×2 (09:00→20:27)
[2019-12-20] MEDS: DEXTRAN 70 OP SCH ×2 (09:00→20:27)
--- NOTE | 2019-12-20 09:28 | NUR ---
ADMINISTERED MORNING MEDS TO PT. PT TOLERATED WELL. PT IV LEAKING. WILL INSERT ANOTHER IV SO LEVOQUIN CAN BE INFUSED. ALL OTHER NEEDS MET. WILL CONTINUE TO ROUND FREQUENTLY ON PT.
[2019-12-20] MEDS: LEVOFLOXACIN 750 MG/D5W PREMIX 150 ML IV SCH (10:18)
[2019-12-20] MEDS: levETIRAcetam 100 MG/ML ORASYR GT SCH ×2 (10:22→20:28)
[2019-12-20] MEDS: PHENYTOIN 100 MG/4 ML UDC GT SCH ×3 (10:22→17:41)
[2019-12-20] MEDS: POLYETHYLENE GLYCOL 17 GM/PKT GT SCH (10:22)
[2019-12-20] MEDS: LACTOBACILLUS RHAMNOSUS GG 1 EACH CAP PO SCH (10:23)
[2019-12-20] MEDS: PHENobarbital 30 MG TAB GT SCH (10:23)
[2019-12-20] MEDS: PANTOPRAZOLE 40 MG TABEC PO SCH (10:24)
[2019-12-20] MEDS: OSELTAMIVIR PHOSPHATE 75 MG CAP PO SCH ×2 (10:25→20:29)
[2019-12-20] MEDS: BACLOFEN 10 MG TAB GT SCH ×2 (10:26→20:28)
[2019-12-20 12:00] VITALS: BP 104/67
[2019-12-20] MEDS: LORazepam 1 MG TAB GT PRN (12:03)
--- NOTE | 2019-12-20 12:09 | NUR ---
ADMINISTERED ATIVAN TO PT DUE TO PT BEING AGITATED. PT HITTING SELF AND DISRUPTING HIS CARE BY PULLING OUT IV AND O2 LINES. WILL SIT AT BEDSIDE UNTIL PT IS CALM AND CAN BE LEFT ALONE TO REST. ALL OTHER NEEDS MET. ALL SAFETY MEASURES IN PLACE. WILL CONTINUE TO MONITOR PT CLOSELY.
[2019-12-20] MEDS ORDERED: POTASSIUM CHLORIDE 20% 40 MEQ/15 ML UDC GT SCH (12:55)
--- NOTE | 2019-12-20 14:33 | NUR ---
PT ASLEEP IN BED. CAREGIVER NOW AT BEDSIDE. ALL NEEDS MET. WILL CONTINUE TO ROUND FREQUENTLY ON PT.
[2019-12-20 16:00] VITALS: BP 111/66
--- NOTE | 2019-12-20 16:21 | NUR ---
PT RESTING IN BED. ALL NEEDS MET. WILL CONTINUE TO ROUND FREQUENTLY ON PT.
--- NOTE | 2019-12-20 18:42 | NUR ---
PT ASLEEP. ALL NEEDS MET. WILL CONTINUE TO ROUND FREQUENTLY ON PT.
--- NOTE | 2019-12-20 19:24 | NUR ---
ENDORSED PT TO CONTRACT PARALEGAL FOR CONTINUITY OF CARE. PT IN STABLE CONDITION AT THIS TIME.
[2019-12-20 20:00] VITALS: BP 108/62
[2019-12-20] MEDS: LATANOPROST 0.005% OP 2.5 ML BTL BOTH EYES SCH (20:27)
[2019-12-20] MEDS: TAMSULOSIN 0.4 MG CAP GT SCH (20:27)
--- NOTE | 2019-12-20 20:28 | NUR ---
DUE PO MEDICATIONS GIVEN VIA GT. CHANGED GAUZE DRESSING OF GT SITE.
--- NOTE | 2019-12-20 21:00 | NUR ---
REVIEWED PLAN OF CARE WITH MIKA WOO LVN, AND WILL CONTINUE WITH POC.
--- NOTE | 2019-12-20 21:25 | NUR ---
INFORMED DR. GALVIN, PT PLATELET LOW - 103, IF WE CAN GIVE HEPARIN SUB-Q. STATED WE CAN GIVE HEPARIN.
[2019-12-21] VITALS: BP 99/58
--- NOTE | 2019-12-21 | NUR ---
SLEEPING COMFORTABLY IN BED, CAREGIVER AT THE BEDSIDE.
[2019-12-21] MEDS: CLINDAMYCIN 600 MG in DEXTROSE 5% 50 ML IV SCH ×3 (00:27→12:25)
[2019-12-21] MEDS: NACL 0.9% 1,000 ML IV SCH ×3 (00:38→14:38)
--- NOTE | 2019-12-21 02:17 | NUR ---
WITH AGITATION, MEDICATED WITH ATIVAN VIA GT ORDERED.
--- NOTE | 2019-12-21 03:17 | NUR ---
NO AGITATION, SLEEPING COMFORTABLY IN BED.
[2019-12-21 04:00] VITALS: BP 99/57
[2019-12-21] MEDS: LORazepam 1 MG TAB GT PRN (04:37)
--- NOTE | 2019-12-21 06:27 | NUR ---
NO BM YET, WILL ENDORSE TO AM SHIFT NURSE FOR FOLLOW UP. Addendum: 12/21/19 at 0723 by Diana Lobo LVN CORRECTION: THIS CHARTING IS NOT FOR THIS PATIENT.
[2019-12-21 06:52] LABS: BASOPHILS % (AUTO) 0.4 % (0.0-2.0); EOSINOPHILS # (AUTO) 0.1 K/uL (0-0.4); EOSINOPHILS % (AUTO) 1.1 % (0.0-4.0); HEMOGLOBIN 11.9 g/dL (12.0-18.0); LYMPHOCYTES # (AUTO) 2.4 K/uL (2.0-11.5); LYMPHOCYTES % (AUTO) 46.6 % (20.5-51.1); MEAN CORPUSCULAR HEMOGLOBIN 33 pg (27-31); MEAN CORPUSCULAR HGB CONC 34 g/dL (33-37); MEAN CORPUSCULAR VOLUME 95.7 fL (80-94); MONOCYTES # (AUTO) 0.5 K/uL (0.8-1.0); MONOCYTES % (AUTO) 10.3 % (1.7-9.3); NEUTROPHILS # (AUTO) 2.1 K/uL (1.8-7.7); NEUTROPHILS % (AUTO) 41.6 % (42.2-75.2); PLATELET COUNT (AUTO) 119 K/uL (140-450); RED BLOOD CELL COUNT(AUTO) 3.66 MIL/uL (4.20-6.10); RED CELL DISTRIBUTION WIDTH 13.5 % (11.6-13.7); WHITE BLOOD COUNT (AUTO) 5.1 K/uL (4.8-10.8)
[2019-12-21 07:06] LABS: ANION GAP 8.8 (8-16); CARBON DIOXIDE 30.1 mmol/L (21-32); CREATININE 0.6 mg/dL (0.6-1.3); POTASSIUM 3.9 mmol/L (3.5-5.1)
[2019-12-21 07:12] LABS: MAGNESIUM 1.8 mg/dL (1.8-2.4); PHOSPHORUS 3.5 mg/dL (2.5-4.9)
--- NOTE | 2019-12-21 07:20 | NUR ---
HAD THREE BM FOR THIS SHIFT. CONDITION REMAIN STABLE. ENDORSED TO AM SHIFT NURSE FOR CONTINUITY OF CARE.
--- NOTE | 2019-12-21 07:21 | NUR ---
RECEIVED BEDSIDE REPORT FROM NIGHT NURSE, PT IS STABLE ON 2 LITER NC OXYGEN, SARAH 24G RUNNING NORMAL SALINE AT 100ML/H, PROTECTIVE HEEL PADS IN PLACE, EDEMA IN LOWER EXTREMITIES, CAREGIVER AT THE BEDSIDE, UPDATE WHITEBOARD, WILL CONTINUE TO MONITOR.
[2019-12-21] MEDS: ALBUTEROL SULFATE/IPRATROPIU 3 ML SOL IH SCH ×2 (07:51→13:00)
[2019-12-21 08:00] VITALS: BP 108/65
--- NOTE | 2019-12-21 09:50 | NUR ---
GAVE PT ORDERED MEDICATION, PT EDUCATION GIVEN, PT TOLERATED WELL, PT IS STABLE, CAREGIVER IN THE ROOM, SAFETY MEASURES IN PLACE, PT IS STABLE
[2019-12-21] MEDS: PHENYTOIN 100 MG/4 ML UDC GT SCH ×3 (10:02→17:43)
[2019-12-21] MEDS: levETIRAcetam 100 MG/ML ORASYR GT SCH (10:03)
[2019-12-21] MEDS: LACTOBACILLUS RHAMNOSUS GG 1 EACH CAP PO SCH (10:04)
[2019-12-21] MEDS: BACLOFEN 10 MG TAB GT SCH (10:04)
[2019-12-21] MEDS: OSELTAMIVIR PHOSPHATE 75 MG CAP PO SCH (10:05)
[2019-12-21] MEDS: PANTOPRAZOLE 40 MG TABEC PO SCH (10:05)
[2019-12-21] MEDS: PHENobarbital 30 MG TAB GT SCH (10:06)
[2019-12-21] MEDS: LEVOFLOXACIN 750 MG/D5W PREMIX 150 ML IV SCH (10:06)
[2019-12-21] MEDS: POLYETHYLENE GLYCOL 17 GM/PKT GT SCH (10:07)
[2019-12-21] MEDS: [UNRECOGNIZED DRUG - OTHER] OP SCH (10:35)
[2019-12-21] MEDS: DEXTRAN 70 OP SCH (10:35)
[2019-12-21] MEDS ORDERED: TAM75 PO (10:37)
[2019-12-21] MEDS ORDERED: CLIN600P4 IV (10:37)
[2019-12-21] MEDS ORDERED: DEXT150S16 IV (10:37)
--- NOTE | 2019-12-21 12:25 | NUR ---
ADMINISTERED ORDER MEDICATION, EDUCATION GIVEN, PT TOLERATED WELL, PT IS STABLE, CAREGIVER AT BEDSIDE.
[2019-12-21] MEDS: LORazepam 2 MG/ML VIAL IVP PRN (14:38)
--- NOTE | 2019-12-21 14:44 | NUR ---
GAVE PT ATIVAN FOR AGITATION, PT EDUCATION GIVEN, PT TOLERATED WELL, PT IS STABLE, CAREGIVER AT BEDSIDE, CALL LIGHT WITHIN REACH.
--- NOTE | 2019-12-21 18:20 | NUR ---
PT IS STABLE, DISCHARGED TO HOME VIA GURNEY TRANSPORTATION, PT IS STABLE, NO SIGNS OF DISTRESS NOTED, REPORT GIVING TO [facility] NURSE.
[2019-12-21] MEDS ORDERED: CLIN300C5 PO (20:05)
== END 2019-12-21 18:20 | disposition home or self-care (01) | DRG 177 ==
LOC: MED 18:28 → MTU 20:34
PROVIDERS: ADMIT General Practice; ATTEND General Practice
DX: J69.0 Pneumonitis due to inhalation of food and vomit (principal); G93.41 Metabolic encephalopathy; N39.0 Urinary tract infection, site not specified; E87.1 Hypo-osmolality and hyponatremia; E87.2 Acidosis; G82.20 Paraplegia, unspecified; E46 Unspecified protein-calorie malnutrition; F79 Unspecified intellectual disabilities; G40.909 Epilepsy, unspecified, not intractable, without status epilepticus; K21.9 Gastro-esophageal reflux disease without esophagitis; K80.20 Calculus of gallbladder without cholecystitis without obstruction; N40.0 Benign prostatic hyperplasia without lower urinary tract symptoms; J10.1 Influenza due to other identified influenza virus with other respiratory manifestations; E86.0 Dehydration; E87.6 Hypokalemia; R31.9 Hematuria, unspecified; R13.10 Dysphagia, unspecified; E83.42 Hypomagnesemia; Z93.1 Gastrostomy status; Z88.1 Allergy status to other antibiotic agents; Z88.0 Allergy status to penicillin; Z79.899 Other long term (current) drug therapy; Z68.29 Body mass index [BMI] 29.0-29.9, adult
CPT/HCPCS: 36415; 36600; 71045; 76770; 80048; 80053; 80184; 80185; 80305; 81001; 82150; 82803; 83036; 83605; 83615; 83690; 83735; 83880; 84100; 84134; 84443; 84484; 85025; 85610; 85730; 87040; 87081; 87086; 87186; 87804; 93005; 94640; 96365; 99285; C1758; G0482; J1644; J1956; J2060; J3475; J3490; J7030; J7060; J7620; Q0092